=== PATIENT | female | born 1975 | race Caucasian/White ===

== ENCOUNTER 2018-11-28 12:48 | Emergency (ER) | payer OTHER ==
[~2018-11-28] VITALS: Ht 167.6 cm; Wt 100.7 kg
[2018-11-28 12:54] VITALS: Ht 167.6 cm; Wt 100.7 kg
[2018-11-28 14:10] VITALS: BP 131/75
== END 2018-11-28 14:10 | disposition home or self-care (01) ==
LOC: ED 12:48
DX: M76.62 Achilles tendinitis, left leg (principal); Z98.890 Other specified postprocedural states
CPT/HCPCS: J1100; J1885

== ENCOUNTER 2018-12-28 18:18 | Emergency (ER) | payer OTHER ==
[~2018-12-28] VITALS: Ht 167.6 cm; Wt 101.2 kg
[2018-12-28 18:25] VITALS: Ht 167.6 cm; Wt 101.2 kg
[2018-12-28 19:34] VITALS: BP 131/77
== END 2018-12-28 19:31 | disposition home or self-care (01) ==
LOC: ED 18:18
DX: J20.9 Acute bronchitis, unspecified (principal); Z98.890 Other specified postprocedural states